=== PATIENT | female | born 1985 | race Two or more races ===

== ENCOUNTER 2022-07-23 18:14 | Inpatient (IN) | payer MEDICAID ==
[~2022-07-23] VITALS: Ht 170.2 cm; Wt 65.3 kg
--- NOTE | 2022-07-23 18:25 | NUR ---
C/O RUQ PAIN SINCE YESTERDAY, WORST TODAY.
[2022-07-23] MEDS ORDERED: MORPHINE SULFATE INJ 2 MG/ML DISP.SYRIN IV ONE (18:30)
[2022-07-23] MEDS ORDERED: IV NS 0.9% 1,000 ML BAG IV ONE (18:30)
[2022-07-23] MEDS ORDERED: ONDANSETRON HCL/PF 4 MG/2 ML VIAL IVP ONE (18:30)
--- NOTE | 2022-07-23 18:30 | NUR ---
ESTABLISHED IV LINE AT LEFT AC 20G , BLOOD SAMPLE OBTAINED SENT TO LAB
[2022-07-23] MEDS ORDERED: ONDANSETRON HCL/PF 4 MG/2 ML VIAL ONE (18:41)
[2022-07-23] MEDS ORDERED: MORPHINE SULFATE INJ 4 MG/ML DISP.SYRIN ONE (18:42)
--- NOTE | 2022-07-23 18:45 | NUR ---
TECH AT BEDSIDE FOR ULTRASOUND
[2022-07-23 18:58] LABS: CALCIUM, SERUM 9.6 mg/dL (8.5-10.1); POTASSIUM 3.6 mmol/L (3.5-5.1)
[2022-07-23 19:04] LABS: ALBUMIN 4.3 g/dL (3.4-5.0); BILIRUBIN,DIRECT 0.3 mg/dL (0.0-0.2); BILIRUBIN,TOTAL 1.1 mg/dL (0.2-1.0); TOTAL PROTEIN, SERUM 8.7 g/dL (6.4-8.2)
--- NOTE | 2022-07-23 19:05 | NUR ---
REC'D REPORT FROM AMANDO VALENTE FOR TASHA
[2022-07-23] MEDS ORDERED: HYDROMORPHONE 1 MG/1 ML DISP.SYRIN ONE ×4 (19:20→22:47)
[2022-07-23] MEDS ORDERED: HYDROMORPHONE 1 MG/1 ML DISP.SYRIN IV ONE ×3 (19:30→22:30)
[2022-07-23 20:07] LABS: BASOPHILS % (AUTO) 0.1 % (0.0-2.0); HEMATOCRIT 41 % (33-45); HEMOGLOBIN 13.6 g/dL (11.5-14.8); LYMPHOCYTES # (AUTO) 0.5 K/uL (0.8-4.8); LYMPHOCYTES % (AUTO) 4.1 % (20.0-44.0); MEAN CORPUSCULAR HGB CONC 34 g/dl (31.0-36.0); MEAN CORPUSCULAR VOLUME 92 fL (82-100); MONOCYTES # (AUTO) 0.4 K/uL (0.1-1.30); MONOCYTES % (AUTO) 3.3 % (2.0-12.0); NEUTROPHILS # (AUTO) 10.5 K/uL (1.8-8.9); NEUTROPHILS % (AUTO) 92.5 % (43.0-81.0); PLATELET COUNT (AUTO) 230 K/uL (150-450); RED BLOOD CELL COUNT(AUTO) 4.39 MIL/uL (4.0-5.2); WHITE BLOOD COUNT (AUTO) 11.3 K/uL (4.3-11.0)
--- NOTE | 2022-07-23 20:27 | NUR ---
VERBAL ORDER FROM MANAGER MARITIME ISIDRA, 1MG DILAUDID
[2022-07-23] MEDS ORDERED: METRONIDAZOLE 500MG/ NS 100ML 100 ML IV ONE (21:06)
[2022-07-23] MEDS: METRONIDAZOLE 500MG/ NS 100ML 500 MG in PREMIX 1 EA IV SCH (21:28)
[2022-07-23] MEDS ORDERED: HYDROMORPHONE 1 MG/1 ML DISP.SYRIN IV PRN (21:30)
[2022-07-23] MEDS ORDERED: diphenhydrAMINE HCL 50 MG/ML VIAL ONE (21:47)
--- NOTE | 2022-07-23 21:58 | NUR ---
COVID SWAB SENT TO LAB
[2022-07-23] MEDS ORDERED: diphenhydrAMINE HCL 50 MG/ML VIAL IV ONE (22:00)
[2022-07-23] MEDS ORDERED: CEFTRIAXONE 1GM BAG (ER ONLY) 100 ML IV ONE (22:32)
[2022-07-23] MEDS: CEFTRIAXONE 2 G in IV D5W 100 ML IV SCH (22:40)
[2022-07-23] MEDS ORDERED: FAMOTIDINE/PF INJ 20 MG/2 ML VIAL IV ONE ×2 (23:24→23:30)
--- NOTE | 2022-07-24 00:40 | NUR ---
HOSPITALIST VERBAL ORDER OF 2MG DILAUDID. NOTED AND CARRIED OUT
[2022-07-24] MEDS ORDERED: HYDROMORPHONE INJ 2 MG/ML DISP.SYRIN ONE (00:42)
[2022-07-24] MEDS ORDERED: HYDROMORPHONE MDV 2 MG in IV D5W 50 ML IV PRN (01:00)
[2022-07-24] MEDS ORDERED: ACETAMINOPHEN 325 MG TABLET PO PRN (01:00)
[2022-07-24] MEDS ORDERED: ZOLPIDEM TARTRATE 5 MG TABLET PO PRN (01:00)
[2022-07-24] MEDS ORDERED: ONDANSETRON HCL/PF 4 MG/2 ML VIAL IVP PRN (01:00)
[2022-07-24] MEDS ORDERED: MAGNESIUM HYDROXIDE 30 ML UDC PO PRN (01:00)
[2022-07-24] MEDS ORDERED: Z GUARD REMEDY 4 OZ OINT TP PRN (01:00)
[2022-07-24] MEDS ORDERED: MAG HYDROX/AL HYDROX/SIMETH 30 ML UDC PO PRN (01:00)
--- NOTE | 2022-07-24 02:01 | NUR ---
PT SLEEPING COMFORTABLY ATTACHED TO MONITOR.
--- NOTE | 2022-07-24 02:34 | NUR ---
GAVE REPORT TO AMANDO HOWELL FOR TASHA
--- NOTE | 2022-07-24 02:45 | NUR ---
MS TRAIN RESERVATION CLERK NOTE PATIENT CAME TO THE UNIT AT AROUND 0245 VIA WHEELCHAIR ACCOMPANIED BY HOSPITAL STAFF WITH INITIAL DX OF ACUTE PANCREATITIS. ALERT AND ORIENTED X4. ABLE TO MAKE NEEDS KNOWN. AFEBRILE AND NOT IN ANY FORM OF ACUTE DISTRESS. BREATHING EVEN AND NON LABORED. LUNG SOUND CLEAR ON AUSCULTATION. WITH IV ACCESS ON L ANTECUBITAL 20G. HOOKED ON IV FLUID OF NS REGULATED AT 120CC/HR AND ADVISED TO MAINTAIN ON NPO ORDERED. PATIENT C/O MODERATE-SEVERE ABDOMINAL PAIN AND WAS MEDICATED ORDERED. INITIAL SKIN ASSESSMENT DONE BY 2 LICENSED NURSES WITH CONSENT FROM THE PATIENT. VITALS TAKEN AND FOLLOWS: BP- 157/92, P-77, R-18, T- 97.8, 02 SAT 99% RA. SAFETY MEASURES IN PLACE. KEPT BED IN LOCKED AND IN LOW POSITION. SIDE RAILS UP X2. ADVISED TO USE THE CALL LIGHT WHEN IN NEED OF ASSISTANCE.
[2022-07-24 03:00] VITALS: BP 157/92
[2022-07-24] MEDS: IV NS 0.9% 1,000 ML IV PRN ×2 (03:19→21:56)
[2022-07-24] MEDS: MORPHINE SULFATE INJ 4 MG/ML DISP.SYRIN IV PRN ×4 (03:20→21:11)
[2022-07-24 05:44] LABS: BASOPHILS % (AUTO) 0.1 % (0.0-2.0); EOSINOPHILS % (AUTO) 0.1 % (0.0-6.0); HEMATOCRIT 38 % (33-45); HEMOGLOBIN 12.8 g/dL (11.5-14.8); LYMPHOCYTES # (AUTO) 0.6 K/uL (0.8-4.8); LYMPHOCYTES % (AUTO) 4.8 % (20.0-44.0); MEAN CORPUSCULAR HGB CONC 34 g/dl (31.0-36.0); MEAN CORPUSCULAR VOLUME 93 fL (82-100); MONOCYTES # (AUTO) 0.8 K/uL (0.1-1.30); MONOCYTES % (AUTO) 6.4 % (2.0-12.0); NEUTROPHILS % (AUTO) 88.6 % (43.0-81.0); PLATELET COUNT (AUTO) 184 K/uL (150-450); WHITE BLOOD COUNT (AUTO) 12.4 K/uL (4.3-11.0)
[2022-07-24 05:58] LABS: CALCIUM, SERUM 8.8 mg/dL (8.5-10.1); CREATININE 0.9 mg/dL (0.6-1.3); MAGNESIUM 1.7 mg/dL (1.8-2.4); POTASSIUM 3.4 mmol/L (3.5-5.1)
[2022-07-24] MEDS ORDERED: METRONIDAZOLE 500MG/ NS 100ML 100 ML IV ONE (06:13)
[2022-07-24] MEDS: METRONIDAZOLE 500MG/ NS 100ML 500 MG in PREMIX 1 EA IV SCH ×3 (06:20→21:11)
--- NOTE | 2022-07-24 07:20 | NUR ---
RN OPENING NOTE PATIENT LYING IN BED, ALERT AND ORIENTED X4. ABLE TO MAKE NEEDS KNOWN. ON RA, TOLERATING WELL. AFEBRILE AND NOT IN ANY FORM OF ACUTE DISTRESS. BREATHING EVEN AND NON LABORED. NO SOB/WHEEZING NOTED. WITH IV ACCESS ON LEFT AC 20G RUNNING WITH NS AT 120ML/HR. MAINTAINED ON NPO ORDERED PER DR. WASSERMAN UNTIL SEEN BY MD THIS MORNING. PT. C/O ABDOMINAL PAIN, PRN MEDS GIVEN. WILL MONITOR. SAFETY MEASURES IN PLACE. KEPT BED IN LOCKED AND IN LOW POSITION TO REDUCE INJURY. SIDE RAILS UP X2. ADVISED TO USE THE CALL LIGHT WHEN IN NEED OF ASSISTANCE. CONSTANT VISUAL CHECK DONE TO ENSURE SAFETY. KEPT COMFORTABLE. WILL MONITOR.
--- NOTE | 2022-07-24 07:22 | NUR ---
RN CLOSING NOTE PATIENT IN BED, AWAKE, ALERT AND ORIENTED X3. ABLE TO MAKE NEEDS KNOWN. AFEBRILE AND NOT IN ANY FORM OF ACUTE DISTRESS. BREATHING EVEN AND NON LABORED. NO SOB/WHEEZING NOTED. WITH IV ACCESS ON LEFT AC 20G RUNNING WITH NS AT 120ML/HR. MAINTAINED ON NPO ORDERED PER DR. WASSERMAN UNTIL SEEN BY MD THIS MORNING. MEDICATED ORDERED. ON IV ATB, MONITORED FOR ANY ADVERSE REACTION. SAFETY MEASURES IN PLACE. KEPT BED IN LOCKED AND IN LOW POSITION TO REDUCE INJURY. SIDE RAILS UP X2. ADVISED TO USE THE CALL LIGHT WHEN IN NEED OF ASSISTANCE. CONSTANT VISUAL CHECK DONE TO ENSURE SAFETY. ALL NURSING NEEDS ATTENDED. ENDORSED TO INCOMING SHIFT FOR CONTINUITY OF CARE.
[2022-07-24 08:00] VITALS: BP 148/95
[2022-07-24] MEDS: Magnesium 1GM/D5W 100ML PREMIX 100 ML IV SCH ×2 (10:34→12:12)
[2022-07-24] MEDS: PANTOPRAZOLE 40 MG VIAL IV SCH (11:14)
[2022-07-24] MEDS: GEMFIBROZIL 600 MG TABLET PO SCH ×2 (11:35→21:11)
[2022-07-24] MEDS: POTASSIUM CL. PREMIX PERIPHER. 50 ML IV SCH ×2 (13:18→14:07)
[2022-07-24 16:00] VITALS: BP 146/100
[2022-07-24] MEDS ORDERED: KETOROLAC TROMETHAMINE INJ 60 MG/2 ML VIAL IM SCH (18:30)
[2022-07-24] MEDS ORDERED: HYDROCODONE/APAP 5/325MG TABLET PO PRN (18:30)
[2022-07-24] MEDS ORDERED: KETOROLAC TROMETHAMINE INJ 30 MG/ML VIAL IV PRN (19:00)
--- NOTE | 2022-07-24 19:10 | NUR ---
RN NOTES RECEIVED REPORT FROM MORNING RN. PATIENT IN BED. A/O X4 ABLE TO MAKE NEEDS KNOWN. ON ROOM AIR SATING 99% NO SOB NO DISTRESS NOTED AT THIS TIME. WITH IV ACCESS AT [facility] # 22 PATENT FLUSHES WELL CONNECTED TO CONTINUOUS IVF NS@125ML/HR. STILL ON NPO ALL SAFETY MEASURES IN PLACE AT ALL TIMES. HOB ELEVATED. CALL LIGHT WITHIN REACH. BED ON LOWEST POSITION AND LOCKED. WILL CLOSELY MONITOR THE PATIENT
--- NOTE | 2022-07-24 19:41 | NUR ---
RN CLOSING NOTE PATIENT IN BED, AWAKE, ALERT AND ORIENTED X3. ABLE TO MAKE NEEDS KNOWN. ON RA, TOLERATING WELL AND NOT IN ANY FORM OF ACUTE DISTRESS. BREATHING EVEN AND NON LABORED. NO SOB/WHEEZING NOTED. WITH IV ACCESS ON LEFT FA 20G RUNNING WITH NS AT 120ML/HR. MAINTAINED ON NPO UNTIL ABDOMINAL DISCOMFORT SUBSIDES ORDERED, PATIENT FULLY AWARE. C/O ABDOMINAL PAIN ALL THROUGHOUT THE SHIFT, PRN MORPHINE ADMINISTERED WITH FAIR EFFECT STATED BY THE PATIENT. PATIENT HAS BEEN REQUESTING FOR DILAUDID FOR PAIN, NOTIFIED MD. PATIENT VERBALIZED FEELING BETTER AT THE END OF THE SHIFT. DUE MEDS GIVEN. ON IV ATB, MONITORED FOR ANY ADVERSE REACTION. SAFETY MEASURES IN PLACE. KEPT BED IN LOCKED AND IN LOW POSITION TO REDUCE INJURY. SIDE RAILS UP X2. ADVISED TO USE THE CALL LIGHT WHEN IN NEED OF ASSISTANCE. CONSTANT VISUAL CHECK DONE TO ENSURE SAFETY. ALL NURSING NEEDS ATTENDED. ENDORSED TO INCOMING SHIFT FOR CONTINUITY OF CARE.
[2022-07-24] MEDS: CEFTRIAXONE 2 G in IV D5W 100 ML IV SCH (20:45)
--- NOTE | 2022-07-24 21:30 | NUR ---
RN NOTES PATIENT REQUESTED TO HAVE KALIN. CALLED DR WASSERMAN WITH NEW ORDER OKAY TO GIVE KALIN.
[2022-07-25] MEDS: METRONIDAZOLE 500MG/ NS 100ML 500 MG in PREMIX 1 EA IV SCH (04:52)
[2022-07-25 06:22] LABS: ALBUMIN 3.1 g/dL (3.4-5.0); BILIRUBIN,DIRECT 0.2 mg/dL (0.0-0.2); BILIRUBIN,TOTAL 0.7 mg/dL (0.2-1.0); CALCIUM, SERUM 8.6 mg/dL (8.5-10.1); CREATININE 0.8 mg/dL (0.6-1.3); PHOSPHORUS 2.6 mg/dL (2.5-4.9); POTASSIUM 3.1 mmol/L (3.5-5.1)
[2022-07-25 06:42] LABS: BASOPHILS % (AUTO) 0.4 % (0.0-2.0); HEMATOCRIT 34 % (33-45); HEMOGLOBIN 11.5 g/dL (11.5-14.8); LYMPHOCYTES # (AUTO) 1.4 K/uL (0.8-4.8); LYMPHOCYTES % (AUTO) 17.9 % (20.0-44.0); MEAN CORPUSCULAR HGB CONC 34 g/dl (31.0-36.0); MEAN CORPUSCULAR VOLUME 93 fL (82-100); MONOCYTES # (AUTO) 0.5 K/uL (0.1-1.30); MONOCYTES % (AUTO) 6.8 % (2.0-12.0); NEUTROPHILS # (AUTO) 5.5 K/uL (1.8-8.9); NEUTROPHILS % (AUTO) 70.9 % (43.0-81.0); PLATELET COUNT (AUTO) 187 K/uL (150-450); RED BLOOD CELL COUNT(AUTO) 3.68 MIL/uL (4.0-5.2); WHITE BLOOD COUNT (AUTO) 7.7 K/uL (4.3-11.0)
--- NOTE | 2022-07-25 06:51 | NUR ---
RN NOTES PATIENT REMAINS STABLE NO SIGNIFICANT CHANGES IN HEALTH CONDITION. ALL DUE MEDS GIVEN ORDERED. IV ACCESS AT [facility]#22 PATENT RUNNING NS@75CC/HR. ON ROOM AIR SATING 98% NO SOB NO DISTRESS NOTED THIS SHIFT. ALL NEEDS ATTENDED PROMPTLY. CALL LIGHT WITHIN REACH. WLL ENDORSED TO MORNING SHIFT FOR TASHA
[2022-07-25 08:00] VITALS: BP 119/86
[2022-07-25] MEDS: GEMFIBROZIL 600 MG TABLET PO SCH (09:37)
[2022-07-25] MEDS: PANTOPRAZOLE 40 MG VIAL IV SCH (09:38)
--- NOTE | 2022-07-25 10:29 | NUR ---
RN OPENING NOTE PATIENT IN BED, AWAKE, ALERT AND ORIENTED X3. ABLE TO MAKE NEEDS KNOWN. ON RA, TOLERATING WELL AND NOT IN ANY FORM OF ACUTE DISTRESS. BREATHING EVEN AND NON LABORED. NO SOB/WHEEZING NOTED. WITH IV ACCESS ON LEFT FA 20G RUNNING WITH NS AT 120ML/HR. SAFETY MEASURES IN PLACE. KEPT BED IN LOCKED AND IN LOW POSITION TO REDUCE INJURY. SIDE RAILS UP X2. ADVISED TO USE THE CALL LIGHT WHEN IN NEED OF ASSISTANCE. CONSTANT VISUAL CHECK DONE TO ENSURE SAFETY. ALL NURSING NEEDS ATTENDED. WILL MONITOR.
[2022-07-25] MEDS ORDERED: GEMF600T90 PO (10:35)
[2022-07-25] MEDS ORDERED: POTASSIUM CHLORIDE 20 MEQ POWDER PACKET PO ONE (11:00)
--- NOTE | 2022-07-25 13:51 | NUR ---
DISCHARGED NOTE PATIENT DISCHARGED TO HOME IN STABLE CONDITION. A/OX4. ON RA, TOLERATING WELL. VITAL SIGNS TAKEN, STABLE AND RECORDED. PATIENT'S PICTURE TAKEN. DENIES PAIN OR DISCOMFORT AT THIS TIME. ALL BELONGINGS ACCOUNTED TO PATIENT. IV ACCESS REMOVED WITH NO ACTIVE BLEEDING. LEFT THE UNIT IN GOOD CONDITION, ASSISTED TO THE FIRST FLOOR. DISCHARGED.
[2022-07-26] MEDS ORDERED: PANTOPRAZOLE 40 MG/PACK PACK PO SCH (07:30)
== END 2022-07-25 13:40 | disposition home or self-care (01) | DRG 282 ==
LOC: ER 19:12 → MED 07-24 02:20
PROVIDERS: ADMIT Student in an Organized Health Care Education/Training Program; ATTEND Student in an Organized Health Care Education/Training Program
DX: K85.90 Acute pancreatitis without necrosis or infection, unspecified (principal); E44.1 Mild protein-calorie malnutrition; D72.829 Elevated white blood cell count, unspecified; E78.1 Pure hyperglyceridemia; F10.10 Alcohol abuse, uncomplicated; J45.909 Unspecified asthma, uncomplicated; Z20.822 Contact with and (suspected) exposure to COVID-19; K86.1 Other chronic pancreatitis; E87.6 Hypokalemia; K82.8 Other specified diseases of gallbladder; Y90.9 Presence of alcohol in blood, level not specified
CPT/HCPCS: 36415; 76705-TC; 80048-TC; 80061-TC; 80076-TC; 82150-TC; 83690-TC; 83735-TC; 84100-TC; 84478-TC; 85025-TC; 87081-TC; A4216; C9113; C9803; G0378; J0696; J1170; J1200; J1885; J2270; J2405; J3475; J3480; J3490; J7030; J7060